=== PATIENT | male | born 1990 | race Caucasian/White ===

== ENCOUNTER 2022-06-23 20:16 | Emergency (ER) | payer OTHER, SELFPAY ==
[2022-06-23 20:18] VITALS: BP 129/80; PULSE 85; RESP 16; TEMP 36.7; O2SAT 97; BMI 25.8
[2022-06-23 21:30] VITALS: BP 108/65; PULSE 85; O2SAT 96
[2022-06-23 21:34] LABS: Basophils # 0.2 K/mm3 (0-0.2); Basophils % 1.4 % (0.1-2.0); Eosinophils # 0.4 K/mm3 (0.0-0.4); Eosinophils % 2.5 % (0.1-12.0); Hematocrit 44.2 % (42.0-52.0); Hemoglobin 15.1 g/dL (14.1-18.0); Lymphocytes % 19.8 % (10-50); Mean Corpuscular HGB Conc 34.2 g/dL (31.8-35.4); Mean Corpuscular Hemoglobin 31.9 pg (27.0-31.2); Mean Corpuscular Volume 93.3 fl (80-94); Mean Platelet Volume 7.1 fl (7.4-10.4); Monocytes # 0.8 K/mm3 (0.1-1.0); Monocytes % 5.4 % (1.7-9.3); Neutrophils # 10.5 K/mm3 (1.8-7.8); Neutrophils % 70.9 % (37.0-80.0); Platelet Count 473 K/mm3 (142-424); Red Blood Count 4.74 M/mm3 (4.60-6.20); Red Cell Distribution Width 14.8 % (11.5-17.5); White Blood Count 14.9 K/mm3 (4.8-10.8)
[2022-06-23 21:42] LABS: Alanine Aminotransferase 30 U/L (12-78); Albumin Level 4.9 g/dl (3.5-5.0); Albumin/Globulin Ratio 1.5 (1.1-1.8); Alkaline Phosphatase 59 U/L (38-126); Aspartate Amino Transferase 33 U/L (17-59); Bilirubin,Total 0.4 mg/dl (0.2-1.3); Blood Urea Nitrogen 17 mg/dl (9-20); Calcium 9.5 mg/dl (8.4-10.2); Carbon Dioxide 30 mmol/L (22.0-30.0); Chloride 104 mmol/L (98-107); Creatinine Clearance Estimated 134 mL/min (50-200); Estimated Glomerular Filt Rate 97 ml/min (>60); GFR (African American) 117 ML/MIN (>60); Globulin 3.2 g/dL (1.3-3.2); Glucose 93 mg/dl (74-100); Sodium 144 mmol/L (136-145); Total Protein,Serum 8.1 g/dl (6.3-8.2)
[2022-06-23 21:47] LABS: C-Reactive Protein 6.7 mg/L (0-4)
[2022-06-23 22:00] VITALS: BP 108/66; PULSE 73; O2SAT 98
[2022-06-23 22:00] LABS: Procalcitonin 0.101 ng/mL (0.0-2.0)
[2022-06-23 22:24] LABS: Erythrocyte Sedimentation Rate 14 mm/hr (0-15)
[2022-06-23 22:30] VITALS: BP 113/66; PULSE 80; O2SAT 98
--- NOTE | 2022-06-23 22:57 | PC.NURSE ---
Dr. Najera at [facility] speaking with pt
--- NOTE | 2022-06-23 23:02 | HMH.EDUPEXT ---
Discharge Plan Disposition Patient Disposition: Home, Self-Care Prescriptions Prescriptions: New sulfamethoxazole-trimethoprim [Bactrim DS] 800-160 mg Tablet 1 tab PO Q12H Qty: 14 0RF cephalexin [cephalexin] 500 mg capsule 500 mg PO TID Qty: 30 0RF No Action omeprazole 40 mg capsule,delayed release(DR/EC) 40 mg PO DAILY Qty: 30 2RF methadone 40 mg tablet,soluble 32 mg PO DAILY escitalopram oxalate [Lexapro] 10 mg tablet 10 mg PO DAILY Qty: 30 2RF hydroxyzine pamoate [Vistaril] 25 mg capsule 25 mg PO TID Qty: 60 0RF Referrals Follow up/Referrals: Mckinley Kramer APRN [Primary Care Provider] - See instructions Clinical Impressions Clinical Impression: Cellulitis and abscess of hand, Acute lymphadenitis Instructions Patient Instructions: Cellulitis Discharge ED Provider: Sander Najera Upper Extremity HPI General Chief Complaint: Extremity Injury, Upper Stated Complaint: red streak from hand injury Time Seen by Provider: 06/23/22 23:02 Mode of Arrival: Ambulatory Source of Information: Patient and Medical Record Limitations: No Limitations Description of Symptoms (Recalled from ER Triage Doc. by RN): pt states bust his lt knuckle last week and then hit it again yesterday and now has a red streak running up his arm History of Present Illness HPI narrative: injured lt hand last week and now has steaking up upper ext MD complaint: injury to: left and hand Onset (ago): day(s) Other Extremity Injury: Left: hand Other injuries: none Handedness: right Place: home Severity: moderate Context: direct blow and other (abrasion) Related Data Home Medications Medication Instructions Recorded Confirmed methadone 40 mg soluble tablet 32 mg PO DAILY 10/06/20 10/06/20 Previous Rx's Medication Instructions Recorded escitalopram oxalate 10 mg tablet 10 mg PO DAILY #30 tabs 10/06/20 (Lexapro) hydroxyzine pamoate 25 mg capsule 25 mg PO TID itching #60 caps 10/06/20 (Vistaril) omeprazole 40 mg capsule,delayed 40 mg PO DAILY #30 caps 10/12/20 release cephalexin 500 mg capsule 500 mg PO TID #30 caps 06/23/22 sulfamethoxazole 800 1 tab PO Q12H #14 tabs 06/23/22 mg-trimethoprim 160 mg tablet (Bactrim DS) Allergies Allergy/AdvReac Type Severity Reaction Status Date / Time No Known Allergies Allergy Verified 10/12/20 11:25 [facility] Disclaimer: The information contained in this section may have been updated after the patient was seen, as this information can be updated by other users. Social History Smoking Status: Current every day smoker tobacco type: cigarettes packs per day: 2 alcohol intake: never substance use type: former substance user, methamphetamine and prescription drug current occupational status: employed Travel in the last 8 weeks: Inside the [place] household members: family housing: house ROS Obtained: Yes All systems reviewed & no additional complaints except as documented Physical Exam General General appearance: alert Head Head exam: normocephalic Eye Eye exam: Present PERRL and EOMI ENT ENT exam: Present mucous membranes moist Neck Neck exam: Present trachea midline Respiratory Respiratory exam: Absent respiratory distress Cardiovascular Cardiovascular exam: Present regular rate Abdominal Exam Abdominal exam: Present soft Expanded Upper Extremity Exam Left: Hand exam: Present full ROM, tenderness, swelling and erythema Neuromotor exam: Normal wrist extension Vascular exam: Normal radial pulse Neurological Exam Neurological exam: Present alert, oriented X3 and CN II-XII intact Psychiatric Psychiatric exam: Present normal affect Skin Skin exam: Present other (streaking lt upper ext ) Medical Decision Making Medical Records Medical records reviewed: Yes I reviewed the patient's medical records. Chago Inquiry Pt receiving controlled substance: No Vital Signs: 06/23/22 20:18
[2022-06-23 23:36] VITALS: BP 112/74; PULSE 77; RESP 16; TEMP 36.7; O2SAT 96
== END 2022-06-23 23:38 | disposition home or self-care (01) ==
PROVIDERS: Emergency Provider Emergency Medicine; PCP Nurse Practitioner Family
DX: L03.114 Cellulitis of left upper limb (principal); L02.512 Cutaneous abscess of left hand; L04.9 Acute lymphadenitis, unspecified; F17.210 Nicotine dependence, cigarettes, uncomplicated; Z23 Encounter for immunization
CPT/HCPCS: 80053; 83605; 84145; 85025; 85651; 86140; 87040; 90471; 90714; 96361; 96374; 96375; 99285; J0696

== ENCOUNTER → 2023-01-28 23:44 | Outpatient (CLI) | payer OTHER, SELFPAY ==
[2023-01-28 19:29] LABS: Adenovirus,PCR Not Detected (NotDetected); Bordetella Pertussis Not Detected (NotDetected); Chlamydophila Pneumoniae, PCR Not Detected (NotDetected); Coronavirus 19, PCR Not Detected (NotDetected); Coronavirus 229E Not Detected (NotDetected); Coronavirus NL63 Not Detected (NotDetected); Coronavirus OC43 Not Detected (NotDetected); Coronovirus HKU1,PCR Not Detected (NotDetected); Human Metapneumovirus Not Detected (NotDetected); Influenza A, PCR Not Detected (NotDetected); Influenza AH1, 2009 Not Detected (NotDetected); Influenza AH1, PCR Not Detected (NotDetected); Influenza AH3,PCR Not Detected (NotDetected); Influenza B, PCR Not Detected (NotDetected); Mycoplasma Pneumoniae, PCR Not Detected (NotDetected); Parainfluenza 2, PCR Not Detected (NotDetected); Parainfluenza 3, PCR Not Detected (NotDetected); Parainfluenza 4, PCR Not Detected (NotDetected); Respiratory Syncytial Virus Not Detected (NotDetected)
[2023-01-28 21:35] LABS: Parainfluenza 1, PCR Detected (NotDetected); Rhinovirus/Enterovirus Detected (NotDetected)
== END ==
PROVIDERS: PCP Student in an Organized Health Care Education/Training Program; Visit Provider Student in an Organized Health Care Education/Training Program
DX: R53.83 Other fatigue (principal); R51.9 Headache, unspecified; R09.89 Other specified symptoms and signs involving the circulatory and respiratory systems; J02.9 Acute pharyngitis, unspecified; R05.9 Cough, unspecified; J12.2 Parainfluenza virus pneumonia; B34.1 Enterovirus infection, unspecified
CPT/HCPCS: 87581; 87632; 87798

== ENCOUNTER 2023-04-05 11:14 | Emergency (ER) | payer OTHER, SELFPAY ==
[2023-04-05 11:15] VITALS: BP 135/101; PULSE 125; RESP 20; TEMP 37.1; O2SAT 96; BMI 22.9
--- NOTE | 2023-04-05 11:22 | XR_ITS ---
FINAL REPORT CLINICAL HISTORY: crush injury pain mainly in 4th and 5th digit COMPARISON: None FINDINGS: RIGHT HAND: 3 views of the right hand were obtained. There is no acute fracture or dislocation. Visualized joint spaces are normally aligned. Soft tissues are unremarkable. IMPRESSION: No acute bony abnormality. Reviewed, Interpreted and Dictated by Donny Hernandez III, MD Transcribed by Marybel Lozano Authenticated and . [facility]
--- NOTE | 2023-04-05 11:30 | PC.NURSE ---
dr. de león at BS
--- NOTE | 2023-04-05 11:31 | PC.NURSE ---
rad at BS for portable xray
--- NOTE | 2023-04-05 11:34 | HMH.EDGENADL ---
Discharge Plan Disposition Patient Disposition: Xfer Short-Term Hosp Condition: Fair Prescriptions Prescriptions: No Action omeprazole 40 mg capsule,delayed release(DR/EC) 40 mg PO DAILY Qty: 30 2RF prednisone 20 mg tablet 20 mg PO BID 5 Days Qty: 10 0RF methadone 40 mg tablet,soluble 32 mg PO DAILY escitalopram oxalate [Lexapro] 10 mg tablet 10 mg PO DAILY Qty: 30 2RF hydroxyzine pamoate [Vistaril] 25 mg capsule 25 mg PO TID Qty: 60 0RF [id number]-fwwzdajbc-[id number] [Bromfed DM] 2-30-10 mg/5 mL syrup 7.5 ml PO Q4-6H PRN (Reason: cold symptoms) Qty: 118 0RF Referrals Follow up/Referrals: Sander Najera MD [Primary Care Provider] - See instructions Activity Restrictions/Add. Instructions Additional Instructions/Restrictions: You were evaluated in the ER for crush injury of the right hand. Though you do not have a fracture, you do have a laceration and numbness. The specialist at want to see you to evaluate the numbness and make sure you do not develop consequences that could lead to you losing your pinky or part of your hand. Go directly to [facility] ER you decided to go by personal vehicle to which is all right, but you must go directly there. Do not make stops along the way. Do not eat or drink prior to arriving there. Give them the packet of information you have been provided. Tell them you are a transfer to see the hand surgeons. They will provide additional recommendations after seeing you. Clinical Impressions Clinical Impression: Crushing injury of right hand Qualifiers: Encounter type: initial encounter Qualified Code(s): S67.21XA - Crushing injury of right hand, initial encounter Stand Alone Forms Stand Alone Forms: Transfer Record - ED Discharge ED Provider: Juan José Jacobsen General Adult HPI General Chief complaint: Extremity Injury, Upper Stated complaint: AO11/3@home, pain in Rt hand Time Seen by Provider: 04/05/23 11:25 Mode of Arrival: Ambulatory Source of Information: Patient Limitations: No Limitations Description of Symptoms (Recalled from ER Triage Doc. by RN): Pt c/o pain to R hand. Pt reports hand was crushed between a truck on a concrete block. Laceration on R 5th finger. History of Present Illness HPI narrative: Patient is a 32-year-old male who presents to the emergency department with acute right hand pain after his right hand was crushed by a truck between it and a cement block. Patient states he was working on a truck and it was jacked up with concrete blocks under it, the alejandra gave way and it fell crushing his right hand. They had to lift the vehicle with a bobcat in order to free his hand. They state they were able to see bone prior to it starting bleeding. Patient has numbness of the right pinky. He has small laceration in the webbing between the pinky and ring finger on the right. He states he put diesel fuel on it to prevent infection. He is in severe pain. Patient goes to methadone clinic but states his pain is unbearable and is shaking. He is afraid he broke the hand. He states doc, I cannot lose this hand this is how I make money for my family . He is right-hand dominant. Related Data Home Medications Medication Instructions Recorded Confirmed methadone 40 mg soluble tablet 32 mg PO DAILY 10/06/20 01/28/23 Previous Rx's Medication Instructions Recorded escitalopram oxalate 10 mg tablet 10 mg PO DAILY #30 tabs 10/06/20 (Lexapro) hydroxyzine pamoate 25 mg capsule 25 mg PO TID itching #60 caps 10/06/20 (Vistaril) omeprazole 40 mg capsule,delayed 40 mg PO DAILY #30 caps 10/12/20 release prednisone 20 mg tablet 20 mg PO BID 5 days #10 tabs 01/28/23 qudiwhhoidanwry-juqrhdbvwuvlaji-AN 7.5 ml PO Q4-6H PRN cold symptoms 01/29/23 2 mg-30 mg-10 mg/5 mL oral syrup #118 mL (Bromfed DM) Allergies Allergy/AdvReac Type Severity Reaction Status Date / Time No Known Allergies Allergy Verified 01/28/23 09:54 [facility]
--- NOTE | 2023-04-05 12:56 | PC.NURSE ---
pt reports pain starting again in R hand updated pt waiting on official xray readings checked with ER MD on POC-states waiting on xray results- gave verbal order for oxycodone 5 mg po one time dose
--- NOTE | 2023-04-05 13:23 | PC.NURSE ---
Spoke with jaylin at [facility] advised they would be giving us a call back when the provider is available.
--- NOTE | 2023-04-05 13:37 | PC.NURSE ---
DOMINGO KO speaking with Dr. Miller at
--- NOTE | 2023-04-05 13:41 | PC.NURSE ---
pt accepted to ER per Dr. Brandi de león at bs discussing POC with pt
[2023-04-05 13:59] VITALS: BP 110/81; PULSE 77; RESP 16; O2SAT 95
[2023-04-05 14:00] VITALS: BP 119/75; PULSE 81; RESP 16; O2SAT 98
[2023-04-05 14:10] VITALS: BP 119/75; PULSE 81; RESP 16; TEMP 37.1; O2SAT 98
== END 2023-04-05 14:10 | disposition short-term general hospital (02) ==
PROVIDERS: Emergency Provider Emergency Medicine; PCP Emergency Medicine
DX: S67.21XA Crushing injury of right hand, initial encounter (principal); F17.210 Nicotine dependence, cigarettes, uncomplicated; W23.0XXA Caught, crushed, jammed, or pinched between moving objects, initial encounter
CPT/HCPCS: 73130; 96365; 96375; 99285; J2405

== ENCOUNTER 2023-08-27 19:21 | Outpatient (CLI) | payer OTHER, SELFPAY | END 2023-08-27 23:59 | LOC: LAB.DROPOF 19:21 | PROVIDERS: PCP Student in an Organized Health Care Education/Training Program; Visit Provider Student in an Organized Health Care Education/Training Program | DX: J02.9 Acute pharyngitis, unspecified (principal); F17.210 Nicotine dependence, cigarettes, uncomplicated | CPT/HCPCS: 87070 ==

== ENCOUNTER 2024-05-14 00:12 | Emergency (ER) | payer OTHER, SELFPAY ==
[2024-05-14 00:15] VITALS: BP 139/94; PULSE 84; RESP 18; TEMP 36.5; O2SAT 100; BMI 23.7
[2024-05-14 00:55] LABS: Basophils # 0.1 K/mm3 (0-0.2); Basophils % 0.8 % (0.1-2.0); Eosinophils # 1.4 K/mm3 (0.0-0.4); Eosinophils % 12.4 % (0.1-12.0); Hematocrit 40.9 % (42.0-52.0); Hemoglobin 13.5 g/dL (14.1-18.0); Lymphocytes # 2.5 K/mm3 (0.7-4.5); Lymphocytes % 23.2 % (10-50); Mean Corpuscular Hemoglobin 30.3 pg (27.0-31.2); Mean Corpuscular Volume 91.9 fl (80-94); Mean Platelet Volume 6.9 fl (7.4-10.4); Monocytes # 0.8 K/mm3 (0.1-1.0); Monocytes % 7.1 % (1.7-9.3); Neutrophils # 6.2 K/mm3 (1.8-7.8); Neutrophils % 56.6 % (37.0-80.0); Platelet Count 434 K/mm3 (142-424); Red Blood Count 4.45 M/mm3 (4.60-6.20); White Blood Count 10.9 K/mm3 (4.8-10.8)
[2024-05-14 01:00] LABS: Alanine Aminotransferase 32 U/L (12-78); Albumin Level 4.8 g/dl (3.5-5.0); Alkaline Phosphatase 48 U/L (38-126); Anion Gap 11.2 mEq/L (5-15); Aspartate Amino Transferase 38 U/L (17-59); Bilirubin,Total 0.3 mg/dl (0.2-1.3); Blood Urea Nitrogen 20 mg/dl (9-20); Calcium 9.5 mg/dl (8.4-10.2); Carbon Dioxide 29 mmol/L (22.0-30.0); Chloride 105 mmol/L (98-107); Creatinine Clearance Estimated 102 mL/min (50-200); Estimated Glomerular Filt Rate 76 ml/min (>60); GFR (African American) 92 ML/MIN (>60); Globulin 2.4 g/dL (1.3-3.2); Glucose 140 mg/dl (74-100); Potassium 4.2 mmoL/L (3.5-5.1); Sodium 141 mmol/L (136-145); Total Protein,Serum 7.2 g/dl (6.3-8.2)
--- NOTE | 2024-05-14 01:02 | ED_ITS ---
Discharge Plan Disposition Patient Disposition: Home, Self-Care Condition: Good Prescriptions Prescriptions: New prednisone 50 mg tablet 50 mg PO DAILY 28 Days Qty: 21 0RF Rx Instructions: Take 1 tab daily for 14 days. Then take half tab daily for 14 days. hydroxyzine HCl 25 mg tablet 25 mg PO Q6H PRN (Reason: itching) Qty: 60 0RF No Action omeprazole 40 mg capsule,delayed release(DR/EC) 40 mg PO DAILY Qty: 30 2RF methylprednisolone 4 mg tablets,dose pack See Rx Instructions PO PER PKG DIR Qty: 21 0RF Rx Instructions: PO PER PKG DIR loratadine [Allergy Relief (loratadine)] 10 mg tablet 10 mg PO DAILY Qty: 30 2RF methadone 40 mg tablet,soluble 32 mg PO DAILY escitalopram oxalate [Lexapro] 10 mg tablet 10 mg PO DAILY Qty: 30 2RF hydroxyzine pamoate [Vistaril] 25 mg capsule 25 mg PO TID Qty: 60 0RF Referrals Follow up/Referrals: Lakeisha Cross MD [Referring] - See instructions Sanna Tomas PA [Primary Care Provider] - See instructions Activity Restrictions/Add. Instructions Additional Instructions/Restrictions: Please establish care with PCP as soon as possible. Please call dermatology to be seen as soon as possible. You need to have your blood work rechecked. Please take steroids as prescribed. Please take hydroxyzine as needed for itching. Clinical Impressions Clinical Impression: Eosinophilia, Rash and nonspecific skin eruption Instructions Patient Instructions: DI for Skin Abscess Print Language Print Language: Macedonian Discharge ED Provider: Hi Schwartz Adult HPI General Chief complaint: Skin/Abscess/Foreign Body Stated complaint: painful rash top half of body, nausea, weakness Time Seen by Provider: 05/14/24 00:15 Mode of Arrival: Ambulatory Source of Information: Patient Limitations: No Limitations Description of Symptoms (Recalled from ER Triage Doc. by RN): Patient presents to ED with a rash that has been going on x3 weeks. Rash is present on chest, bilateral arms, back and bilateral legs. Patient reports the rash itches. Patient states he has had some nasuea. History of Present Illness HPI narrative: 33-year-old male with history of chronic sinusitis presents for diffuse pruritic rash. He reports that he first noticed it a few days ago after working in a house to replace fiberglass insulation. He reports this started on his arms but is now gone to his whole body. It is extremely itchy and he has been scratching his arms significantly. He reports that that his skin is a different color than normal and spots. He reports that he intermittently gets bloody noses but that is normal for him. He denies any shortness of breath. He reports he has had approximately 15 pound weight loss over the last few months that was unintentional, but he reports he has been really stressed and has not been eating as much is normal. He denies any medications except for methadone, denies any drug use. Patient has no known allergies. No history of eczema. Related Data Home Medications ?Medication ?Instructions ?Recorded ?Confirmed methadone 40 mg soluble tablet 32 mg PO DAILY 10/06/20 08/27/23 Previous Rx's ?Medication ?Instructions ?Recorded escitalopram oxalate 10 mg tablet 10 mg PO DAILY #30 tabs 10/06/20 (Lexapro) hydroxyzine pamoate 25 mg capsule 25 mg PO TID itching #60 caps 10/06/20 (Vistaril) omeprazole 40 mg capsule,delayed 40 mg PO DAILY #30 caps 10/12/20 release loratadine 10 mg tablet (Allergy 10 mg PO DAILY #30 tabs 08/27/23 Relief (loratadine)) methylprednisolone 4 mg tablets in See Rx Instructions PO PER PKG DIR 08/27/23 a dose pack #21 tabs hydroxyzine HCl 25 mg tablet 25 mg PO Q6H PRN itching #60 tabs 05/14/24 prednisone 50 mg tablet 50 mg PO DAILY 28 days #21 tabs 05/14/24 Allergies Allergy/AdvReac Type Severity Reaction Status Date / Time No Known Allergies Allergy Verified 08/27/23 14:30 [facility] Disclaimer: The information contained in this section may have been updated after the patient was seen, as this information can be updated by other users. Medical History (Updated 05/14/24 @ 02:19 by Hi Schwartz MD) Acute lymphadenitis Anxiety and depression Tobacco use disorder Surgical History (Updated 08/27/23 @ 21:11 by CANDICE Nicholas) H/O nasal polypectomy No significant past surgical history Family History Other No significant family history Social History Smoking Status: Current every day smoker tobacco type: cigarettes packs per day: 2 alcohol intake: never substance use type: former substance user, methamphetamine and prescription drug current occupational status: employed Travel in the last 8 weeks: Inside the [place] household members: family housing: house Other Medical History Have you received the Pneumonia Vaccine: No ROS Obtained: Yes All systems reviewed & no additional complaints except as documented Physical Exam General General appearance: alert and in no apparent distress Head Head exam: atraumatic and normocephalic Eye Eye exam: Present normal appearance, PERRL and EOMI ENT ENT exam: Present normal oropharynx and normal external ear exam Neck Neck exam: Present normal inspection and full ROM Chest Chest inspection: Present normal inspection and symmetric chest wall rise; Absent tenderness Respiratory Respiratory exam: Present normal lung sounds bilaterally; Absent respiratory distress Cardiovascular Cardiovascular exam: Present regular rate and normal rhythm Abdominal Exam Abdominal exam: Present soft; Absent distention, tenderness or guarding Extremities Exam Extremities exam: Present normal inspection; Absent edema or joint swelling Back Exam Back exam: Present normal inspection; Absent tenderness Neurological Exam Neurological exam: Present alert and oriented X3; Absent motor sensory deficit Psychiatric Psychiatric exam: Present normal affect and normal mood Skin Skin exam: Present warm, dry, rash (Diffuse rash over the arms legs chest abdomen and back. Blanching, erythematous, discrete papular lesions, intensely pruritic. Over the arms there are extensive excoriations, no secondary cellulitis at this point. Scattered areas of lichenification) and erythema Lymphatic Lymphatic Findings: no adenopathy Medical Decision Making Medical Records Medical records reviewed: Yes I reviewed the patient's medical records. Screening: Per USPSTF and CDC recommendations, given the prevalence of disease in our region, it is our hospital?s policy to screen for HIV and viral Hepatitis for all patients aged 18 and over and those with ongoing risk factors. Chago Inquiry Pt receiving controlled substance: No Chago was queried for this patient: No Vital Signs: 05/14/24 00:15 05/14/24 02:24 Temperature 97.7 F 97.7 F Temperature Source Oral Oral Pulse Rate 84 Pulse Rate [Right Brachial] 84 Respiratory Rate 18 18 Blood Pressure 129/92 H Blood Pressure [Right Arm] 139/94 H Blood Pressure Mean [Right Arm] 109 Blood Pressure Source Automatic Cuff Blood Pressure Source [Right Arm] Automatic Cuff Blood Pressure Position Supine Blood Pressure Position [Right Arm] Supine 02 Sat by Pulse Oximetry 100 Oxygen Delivery Method Room Air Room Air Lab Data Lab results reviewed: Yes I reviewed the patient's lab results. Lab Results 05/14/24 00:45: WBC 10.9 H, RBC 4.45 L, Hgb 13.5 L, Hct 40.9 L, MCV 91.9, MCH 30.3, MCHC 33.0, RDW 14.0, Plt Count 434 H, MPV 6.9 L, Neut % (Auto) 56.6, Lymph % (Auto) 23.2, [place] % (Auto) 7.1, Eos % (Auto) 12.4 H, Baso % (Auto) 0.8, Neut # (Auto) 6.2, Lymph # (Auto) 2.5, [place] # (Auto) 0.8, Eos # (Auto) 1.4 H, Baso # (Auto) 0.1, Sodium 141, Potassium 4.2, Chloride 105, Carbon Dioxide 29, Anion Gap 11.2, BUN 20, Creatinine 1.10, Estimated Creat Clear 102, Estimated GFR 76, Est GFR ( Amer) 92, Glucose 140 H, Calcium 9.5, Total Bilirubin 0.3, AST 38, ALT 32, Alkaline Phosphatase 48, Troponin I < 0.01, Total Protein 7.2, Albumin 4.8, Globulin 2.4, Albumin/Globulin Ratio 2.0 H, Vitamin B12 552, HIV 1&2 Antibody Rapid Nonreactive 05/14/24 00:45 05/14/24 00:45 Orders (Tests/Meds): ED MEDICATIONS Discontinued Medications Generic Name Dose Route Start Last Admin Trade Name Freq PRN Reason Stop Dose Admin Hydroxyzine Pamoate 25 mg 05/14/24 02:17 05/14/24 02:22 Hydroxyzine Pamoate 25mg Capsule PO 05/14/24 02:18 25 mg ONCE ONE Administration Prednisone 60 mg 05/14/24 02:17 05/14/24 02:22 Prednisone 20mg Tab PO 05/14/24 02:18 60 mg ONCE ONE Administration ORDERS Category Date Time Status CXR --portable [XR chest portable] Stat Exams 05/14/24 01:19 Taken Antineutrophil Cytoplasmic Ab Stat Lab 05/14/24 02:16 Received CBC w/Auto Diff [Complete Blood Count Auto Diff] Stat Lab 05/14/24 00:45 Completed CMP [Comprehensive Metabolic Panel] Stat Lab 05/14/24 00:45 Completed HIV (1&2) Antibody Rapid Stat Lab 05/14/24 00:45 Completed Hep C Ab with Reflex to RNA Stat Lab 05/14/24 00:45 Received Peripheral Smear Review Stat Lab 05/14/24 00:45 Received Troponin I Stat Lab 05/14/24 00:45 Completed Tryptase Stat Lab 05/14/24 01:59 Received Vitamin B12 Stat Lab 05/14/24 00:45 Completed Medical Decision Narrative: 33-year-old male without significant past medical history presents for diffuse pruritic rash for the last few days.. History was obtained via interactive discussion with patient. On arrival, patient is [afebrile, hemodynamically stable, satting appropriately, alert, oriented x4, GCS 15], moving all extremities spontaneously. Full physical exam performed and significant for extensive skin rash as documented above. No lymphadenopathy on exam. Blood work obtained and significant for eosinophilia with absolute eosinophil count 1.4. Further workup ordered including peripheral smear, ANCA, B12 tryptase troponin chest x-ray HIV hep C Differential includes but is not limited to idiopathic urticaria, atopic dermatitis, allergic reaction, dress syndrome eczema, malignancy, hypereosinophilia syndromes, EGPA, parasitosis Given patient history, exam and workup, patient's presentation most likely represents hypereosinophilia with cutaneous eruption. No history of medication use to suggest dress syndrome. He has history of chronic sinusitis and nosebleeds is suggestive of EGPA. No history of recent travel or parasitosis. Patient has had some skin exposures including fiberglass and diesel fuel, but the distribution and timing of the rash does not make sense with this. He has had some unintentional weight loss, but he has no lymphadenopathy and does not have severely elevated or depressed cell lines on differential. Given the rest of his workup is normal and patient is well-appearing otherwise, I do not think he needs to be transferred for more serious evaluation. However, I encouraged him to follow-up with dermatology and PCP as soon as possible for further assessment. I started him on high-dose steroids with 50 mg prednisone daily for 2 weeks and 25 mg daily thereafter for 2 weeks. This should cover him until he can be seen for follow-up. Procedures Risk/Benefits of Procedure(s) Were Explained: Yes Critical Care Critical Care Time Critical Care Time: No
--- NOTE | 2024-05-14 01:19 | XR_ITS ---
PROCEDURE INFORMATION: Exam: XR Chest Exam date and time: 05/14/2024 1:20 AM Age: 33 years old Clinical indication: Other: Eosinophilia TECHNIQUE: Imaging protocol: Radiologic exam of the chest. Views: 1 view. COMPARISON: No relevant prior studies available. FINDINGS: Lungs: Normal. Pleural spaces: Unremarkable. No pleural effusion. No pneumothorax. Heart/Mediastinum: Normal. Bones/joints: No acute abnormality. IMPRESSION: No acute findings.
[2024-05-14 01:35] LABS: HIV (1&2) Antibody Rapid NONREACTIVE (NONREACTIVE)
[2024-05-14 01:56] LABS: Troponin I < 0.01 ng/ml (0.00-0.034)
[2024-05-14 02:22] LABS: Vitamin B12 552 pg/mL (239-931)
[2024-05-14] MEDS: hydrOXYzine pamoate 25MG CAPSULE 25 MG PO (02:22)
[2024-05-14] MEDS: predniSONE 20MG TAB 60 MG PO (02:22)
[2024-05-14 02:24] VITALS: BP 129/92; PULSE 84; RESP 18; TEMP 36.5; O2SAT 100
[2024-05-15 06:11] LABS: HCV Ab Non Reactive (Non Reactive)
[2024-05-16 01:42] LABS: Peripheral Smear Review Scanned Result
[2024-05-18 17:39] LABS: Cytoplasmic (C-ANCA) <1:20 titer (Neg:<1:20); Perinuclear (P-ANCA) <1:20 titer (Neg:<1:20)
== END 2024-05-14 02:31 | disposition home or self-care (01) ==
PROVIDERS: Emergency Provider Emergency Medicine; PCP Student in an Organized Health Care Education/Training Program
DX: D72.10 Eosinophilia, unspecified (principal); R21 Rash and other nonspecific skin eruption; R11.0 Nausea; R04.0 Epistaxis; R63.4 Abnormal weight loss; Z72.0 Tobacco use; Z51.81 Encounter for therapeutic drug level monitoring
CPT/HCPCS: 71045; 80053; 82607; 83520; 84484; 85025; 86036; 86803; 87389; 99283

== ENCOUNTER 2024-12-19 14:43 | Emergency (ER) | payer OTHER, SELFPAY ==
[2024-12-19 14:49] VITALS: BP 92/57; PULSE 91; O2SAT 98
[2024-12-19 14:50] VITALS: BP 117/81; PULSE 93; RESP 15; TEMP 36.8; O2SAT 98; BMI 24.3
--- NOTE | 2024-12-19 15:05 | ED_ITS ---
Discharge Plan Disposition Patient Disposition: Home, Self-Care Condition: Good Prescriptions Prescriptions: No Action methadone 40 mg tablet,soluble 32 mg PO DAILY clindamycin HCl 300 mg capsule 300 mg PO Q8H 10 Days Qty: 30 0RF hydroxyzine HCl 25 mg tablet 25 mg PO Q6H PRN (Reason: itching) 30 Days Qty: 90 2RF Referrals Follow up/Referrals: Sanna Tomas PA [Primary Care Provider, Family Practice] - See instructions Tae Gordon DO [Staff Physician, Orthopedics] - See instructions Activity Restrictions/Add. Instructions Additional Instructions/Restrictions: Take Tylenol and ibuprofen every 6 hours for the next 2 days for pain and inflammation. You likely have a sprain. If you continue to have severe worsening symptoms, I have sent you with a referral to the orthopedic team and you should follow-up with them. You can wear the brace as needed for comfort and remove when your pain and swelling resolves. You can use ice as needed for comfort. Clinical Impressions Clinical Impression: Hand sprain Print Language Print Language: Tongan Discharge ED Provider: Sanna Mena General Adult HPI General Chief complaint: Extremity Injury, Upper Stated complaint: AO 12/18/24 22:00 R arm Edema and Possible Break Time Seen by Provider: 12/19/24 15:05 Mode of Arrival: Ambulatory Source of Information: Patient Description of Symptoms (Recalled from ER Triage Doc. by RN): patient states lastnight he was working on a tractor wheel when his right hand slipped from the [place] [employer] bar and hit the tractor wheel. his pain is in his right wrist and hand 8/10 pain History of Present Illness HPI narrative: Patient is a 34-year-old male with no significant past medical history who presents to the emergency department with a right upper extremity injury. Patient states that last night he was working on a tractor wheel when his arm slipped and he hit the tractor wheel. Patient reports significant pain at the ulnar aspect of his wrist. Patient denies any numbness or weakness. Patient is not on any blood thinners. Patient did not take any Tylenol or Motrin for his symptoms. Patient states that his pain continued today which is why he came here to the emergency department. Related Data Home Medications ?Medication ?Instructions ?Recorded ?Confirmed methadone 40 mg soluble tablet 32 mg PO DAILY 05/06/21 12/20/24 Previous Rx's ?Medication ?Instructions ?Recorded clindamycin HCl 300 mg capsule 300 mg PO Q8H 10 days # 30 caps 05/22/24 hydroxyzine HCl 25 mg tablet 25 mg PO Q6H PRN itching 1 month 05/22/24 #90 tabs Allergies Allergy/AdvReac Type Severity Reaction Status Date / Time No Known Allergies Allergy Verified 05/22/24 13:09 [facility] Disclaimer: The information contained in this section may have been updated after the patient was seen, as this information can be updated by other users. Medical History Acute lymphadenitis Anxiety and depression Tobacco use disorder Surgical History H/O nasal polypectomy No significant past surgical history Family History Other No significant family history Social History Smoking Status: Current every day smoker tobacco type: cigarettes packs per day: 2 alcohol intake: never substance use type: former substance user, methamphetamine and prescription drug current occupational status: employed Travel in the last 8 weeks?: Inside the [place] household members: family housing: house Have you lived/traveled outside US in past 30 days?: No Contact w/someone who lives/traveled outside US past 30 days?: No Exposure to someone with infectious disease in past 14 days?: No Do you have a fever (greater than 100.4 F or 38 C)?: No Have you tested positive for COVID-19?: No Exposed to someone with COVID-19 in past 14 days?: No Do you have a sore throat?: No Do you have a cough?: No Do you have any weakness?: No Do you have any diarrhea?: No Are you experiencing any unusual bleeding?: No Do you have any muscle aches/pain?: No Do you have any abdominal pain?: No Are you experiencing loss of taste or smell?: No Other Medical History Have you received the Pneumonia Vaccine: No ROS Obtained: Yes All systems reviewed & no additional complaints except as documented and Yes Systems reviewed as appropriate & no additional complaints except as documented Physical Exam General General appearance: alert and in no apparent distress Head Head exam: atraumatic, normocephalic and normal inspection Eye Eye exam: Present normal appearance, PERRL and EOMI; Absent scleral icterus ENT ENT exam: Present normal exam and normal external ear exam Neck Neck exam: Present normal inspection and full ROM Chest Chest inspection: Present normal inspection and symmetric chest wall rise Respiratory Respiratory exam: Present normal lung sounds bilaterally; Absent respiratory distress or wheezes Cardiovascular Cardiovascular exam: Present regular rate, normal rhythm and normal heart sounds Abdominal Exam Abdominal exam: Present soft and distention; Absent tenderness, guarding or rebound Extremities Exam Extremities exam: Present normal inspection, full ROM and other (Right upper extremity with tenderness at the ulnar aspect of the wrist, swelling on the dorsal aspect of the hand, no snuff box tenderness, no obvious deformity ) Back Exam Back exam: Present normal inspection and full ROM Neurological Exam Neurological exam: Present alert, oriented X3 and other Psychiatric Psychiatric exam: Present normal affect and normal mood Skin Skin exam: Present warm and dry Medical Decision Making Medical Records Screening: Per USPSTF and CDC recommendations, given the prevalence of disease in our region, it is our hospital?s policy to screen for HIV and viral Hepatitis for all patients aged 18 and over and those with ongoing risk factors. Chago Inquiry Pt receiving controlled substance: No Vital Signs: 12/19/24 14:49 12/19/24 14:50 12/19/24 15:30 Temperature 98.2 F Temperature Source Oral Pulse Rate 91 H 74 Pulse Rate [Right Radial] 93 H Respiratory Rate 15 Blood Pressure 92/57 L 120/66 Blood Pressure [Right Arm] 117/81 Blood Pressure Mean 75 Blood Pressure Mean [Right Arm] 93 Blood Pressure Source Blood Pressure Source [Right Arm] Automatic Cuff Blood Pressure Position Blood Pressure Position [Right Arm] Supine 02 Sat by Pulse Oximetry 98 98 97 Oxygen Delivery Method Room Air 12/19/24 16:00 12/19/24 16:30 12/19/24 17:35 Temperature 98.1 F Temperature Source Oral Pulse Rate 65 61 74 Pulse Rate [Right Radial] Respiratory Rate 15 Blood Pressure 101/61 L 102/69 L 120/84 Blood Pressure [Right Arm] Blood Pressure Mean 67 74 Blood Pressure Mean [Right Arm] Blood Pressure Source Automatic Cuff Blood Pressure Source [Right Arm] Blood Pressure Position Supine Blood Pressure Position [Right Arm] 02 Sat by Pulse Oximetry 99 Oxygen Delivery Method Room Air Lab Data Lab results reviewed: Yes I reviewed the patient's lab results. Orders (Tests/Meds): ED MEDICATIONS Discontinued Medications Generic Name Dose Route Start Last Admin Trade Name Lisa PRN Reason Stop Dose Admin Acetaminophen 1,000 mg 12/19/24 16:25 12/19/24 16:32 Acetaminophen 500mg Tab PO 12/19/24 16:26 1,000 mg ONCE ONE Administration Ibuprofen 800 mg 12/19/24 16:25 12/19/24 16:32 Ibuprofen 800 Mg Tablet PO 12/19/24 16:26 800 mg ONCE ONE Administration Morphine Sulfate 4 mg 12/19/24 15:27 12/19/24 15:52 Morphine 4mg/Ml Syringe IV 12/19/24 15:28 4 mg ONCE ONE Administration Ondansetron HCl 4 mg 12/19/24 15:27 12/19/24 15:52 Ondansetron 4mg/2ml Vial IV 12/19/24 15:28 4 mg ONCE ONE Administration ORDERS Category Date Time Status Forearm XR right 2 views [XR forearm RT 2V] Stat Exams 12/19/24 15:27 Completed Hand XR right minimum 3 views [XR hand RT min 3V] Stat Exams 12/19/24 15:27 Completed Wrist XR right minimum 3 views [XR wrist RT min 3V] Exams 12/19/24 15:27 Completed Stat Medical Decision Narrative: Patient is a 34-year-old male with no significant past medical history who presented to the emergency department with right upper extremity pain. Patient states he hit it on a tractor wheel last night. On arrival, patient was hemodynamically stable with unremarkable vital signs. On exam, patient did have some swelling along the ulnar dorsal aspect of the hand. Patient had some tenderness along the ulnar aspect of the wrist, no snuffbox tenderness no tenderness at the base of the fifth metacarpal. Patient was neurovascularly intact with appropriate pulses. Differential includes but not limited to: Fracture, dislocation, sprain, strain, amongst others. Patient was given Tylenol and Motrin as well as morphine for pain control in the emergency department. X-rays were reviewed and interpreted by myself. No acute fracture was seen. At this time, patient was placed into a removable splint and patient was sent with orthopedic follow-up. Patient was advised to take Tylenol and ibuprofen at home for symptom control and return precautions were discussed. Patient was discharged home in stable condition. Critical Care Critical Care Time Critical Care Time: No
--- OUTSIDE RECORDS SUMMARY | 2024-12-19 15:11 | XMS_ITS | Clinical Summary ---
Author Organization Healthcare Address [address] [place] [address] Care Team Providers Care Sales Trainer Name Role Phone Unavailable Primary Care Provider Unavailabl e Social History Tobacco Use Types Packs/Day Years Used Date Smoking Tobacco: Never Assessed Sex and Gender Information Value Date Recorded Sex Assigned at Not on file Legal Sex Male 8:24 PM EDT Gender Identity Not on file Sexual Orientation Not on file Last Filed Vital Signs Vital Sign Reading Time Taken Comments Blood Pressure 135/101 04/05/2023 1:39 PM EDT Pulse 125 04/05/2023 1:39 PM EDT Temperature 37.1 C (98.7 F) 04/05/2023 1:39 PM EDT Respiratory Rate 20 04/05/2023 1:39 PM EDT Oxygen Saturation 96% 04/05/2023 1:39 PM EDT RA Inhaled Oxygen Concentration - - Weight - - Height - - Body Mass Index - - Plan of Treatment Not on file [place] [id number] [employer] [facility] MEDICAID
--- NOTE | 2024-12-19 15:27 | XR_ITS ---
PROCEDURE INFORMATION: Exam: XR Right Hand Exam date and time: 12/19/2024 3:37 PM Age: 34 years old Clinical indication: Other: Tenderness, concern for fracture TECHNIQUE: Imaging protocol: Radiologic exam of the right hand. Views: 3 or more views. COMPARISON: CR XR HAND RT MIN 3V 04/05/2023 11:48 AM FINDINGS: Bones/joints: Normal. Soft tissues: Normal. IMPRESSION: No acute findings.
--- NOTE | 2024-12-19 15:27 | XR_ITS ---
PROCEDURE INFORMATION: Exam: XR Right Forearm Exam date and time: 12/19/2024 3:37 PM Age: 34 years old Clinical indication: Other: Tenderness, concern for fracture TECHNIQUE: Imaging protocol: Radiologic exam of the right forearm. Views: 2 views. COMPARISON: CR XR FOREARM RT 2V 12/19/2024 3:37 PM FINDINGS: Bones/joints: Normal. Soft tissues: Normal. IMPRESSION: No acute findings.
--- NOTE | 2024-12-19 15:27 | XR_ITS ---
PROCEDURE INFORMATION: Exam: XR Right Wrist Exam date and time: 12/19/2024 3:37 PM Age: 34 years old Clinical indication: Other: Tenderness, concern for fracture TECHNIQUE: Imaging protocol: Radiologic exam of the right wrist. Views: 3 or more views. COMPARISON: CR XR HAND RT MIN 3V 04/05/2023 11:48 AM FINDINGS: Bones/joints: Normal. Soft tissues: Normal. IMPRESSION: No acute findings.
[2024-12-19 15:30] VITALS: BP 120/66; PULSE 74; O2SAT 97
[2024-12-19] MEDS: ONDANSETRON 4MG/2ML VIAL 4 MG IV (15:52)
[2024-12-19] MEDS: MORPHINE 4MG/ML SYRINGE 4 MG IV (15:52)
[2024-12-19 16:00] VITALS: BP 101/61; PULSE 65; O2SAT 99
[2024-12-19 16:30] VITALS: BP 102/69; PULSE 61
[2024-12-19] MEDS: ACETAMINOPHEN 500MG TAB 1000 MG PO (16:32)
[2024-12-19] MEDS: IBUPROFEN 800 MG TABLET PO (16:32)
[2024-12-19 17:35] VITALS: BP 120/84; PULSE 74; RESP 15; TEMP 36.7; O2SAT 98
== END 2024-12-19 17:36 | disposition home or self-care (01) ==
PROVIDERS: Emergency Provider Student in an Organized Health Care Education/Training Program; PCP Student in an Organized Health Care Education/Training Program
DX: S63.91XA Sprain of unspecified part of right wrist and hand, initial encounter (principal); W22.8XXA Striking against or struck by other objects, initial encounter
CPT/HCPCS: 73090; 73110; 73130; 96374; 96375; 99284; J2270; J2405

== ENCOUNTER 2025-03-25 17:54 | Emergency (ER) | payer SELFPAY ==
[2025-03-25] VITALS (7 sets, daily range): BP systolic 117–134; BP diastolic 82–98; PULSE 81–102; RESP 18–20; TEMP 36.8; O2SAT 99–100; BMI 22.9
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
--- OUTSIDE RECORDS SUMMARY | 2025-03-25 18:10 | XMS_ITS | Clinical Summary ---
Author Organization Healthcare Address [address] [place] [address] Care Team Providers Care Ccie Name Role Phone Unavailable Primary Care Provider [...] Plan of Treatment Not on file [facility] [place] [id number] [employer] [facility] MEDICAID
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
[2025-03-25] MEDS: HYDROCODONE/APAP 5/325 MG TABLET 1 TAB PO (19:18)
== END 2025-03-25 20:24 | disposition home or self-care (01) ==
PROVIDERS: Emergency Provider Student in an Organized Health Care Education/Training Program
DX: M94.0 Chondrocostal junction syndrome [Tietze] (principal); M47.816 Spondylosis without myelopathy or radiculopathy, lumbar region; R07.81 Pleurodynia; M54.6 Pain in thoracic spine; F17.210 Nicotine dependence, cigarettes, uncomplicated; V49.50XA Passenger injured in collision with unspecified motor vehicles in traffic accident, initial encounter
CPT/HCPCS: 71250; 72128; 72131; 99283; 99284

== ENCOUNTER 2025-03-28 21:29 | Emergency (ER) | payer SELFPAY ==
[2025-03-28] VITALS (12 sets, daily range): BP systolic 120–143; BP diastolic 60–90; PULSE 70–91; RESP 22; TEMP 36.6; O2SAT 95–100; BMI 22.3
--- NOTE | 2025-03-28 21:45 | XR_ITS ---
PROCEDURE INFORMATION: Exam: XR Chest Exam date and time: 03/28/2025 10:13 PM Age: 34 years old Clinical indication: Other: Concern for pneumothorax, felt a popping sensation TECHNIQUE: Imaging protocol: Radiologic exam of the chest. Views: 1 view. COMPARISON: CT CHEST WO CON 03/25/2025 6:28 PM FINDINGS: Lungs: Unremarkable. No consolidation. Pleural spaces: Unremarkable. No pleural effusion. No pneumothorax. Heart/Mediastinum: Unremarkable. No cardiomegaly. Bones/joints: Unremarkable. IMPRESSION: No acute findings.
--- OUTSIDE RECORDS SUMMARY | 2025-03-28 21:47 | XMS_ITS | Clinical Summary ---
Author Organization Healthcare Address [address] [place] [address] Care Team Providers Care Outreach Liaison Name Role Phone Unavailable Primary Care Provider [...] Plan of Treatment Not on file [facility] [place] [address] [employer] [facility] MEDICA[employer]
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
[2025-03-28 22:59] LABS: Hematocrit 34.7 % (42.0-52.0); Hemoglobin 11.8 g/dL (14.1-18.0); Immature Granulocytes % 0.3 %; Mean Corpuscular HGB Conc 34.0 g/dL (31.8-35.4); Mean Corpuscular Hemoglobin 30.8 pg (27.0-31.2); Mean Corpuscular Volume 90.6 fl (80-94); Nucleated Red Blood Cells % 0 %; Platelet Count 320 K/mm3 (142-424); Red Blood Count 3.83 M/mm3 (4.60-6.20); Red Cell Distribution Width-SD 42.8 fL; White Blood Count 9.7 K/mm3 (4.8-10.8)
[2025-03-28] MEDS: LIDOCAINE 5% TRANSDERMAL PATCH 1 EACH TD (22:59)
[2025-03-28] MEDS: ACETAMINOPHEN 500MG TAB 1000 MG PO (22:59)
[2025-03-28] MEDS: METHOCARBAMOL 500MG TABLET 500 MG PO (22:59)
[2025-03-28] MEDS: KETOROLAC 30MG/ML VIAL 30 MG IM (22:59)
[2025-03-28 23:20] LABS: Alanine Aminotransferase 18 U/L (12-78); Albumin Level 3.5 g/dl (3.5-5.0); Albumin/Globulin Ratio 1.1 (1.1-1.8); Alkaline Phosphatase 73 U/L (38-126); Anion Gap 8.9 mEq/L (5-15); Aspartate Amino Transferase 34 U/L (17-59); Bilirubin,Total 0.3 mg/dl (0.2-1.3); Blood Urea Nitrogen 14 mg/dl (9-20); Calcium 9.1 mg/dl (8.4-10.2); Carbon Dioxide 30 mmol/L (22.0-30.0); Chloride 100 mmol/L (98-107); Creatinine Clearance Estimated 131 mL/min (50-200); Creatinine,Serum 0.80 mg/dl (0.66-1.25); Estimated Glomerular Filt Rate 109 ml/min (>60); GFR (African American) 132 ML/MIN (>60); Globulin 3.3 g/dL (1.3-3.2); Glucose 120 mg/dl (74-100); Potassium 3.9 mmoL/L (3.5-5.1); Sodium 135 mmol/L (136-145); Total Protein,Serum 6.8 g/dl (6.3-8.2)
[2025-03-28] MEDS: 0.9 % SODIUM CHLORIDE 50 ML VIAL 40 ML IV (23:54)
[2025-03-28] MEDS: SODIUM CHLORIDE 0.9% 10ML SYR (RAD ONLY) 10 ML IV (23:55)
[2025-03-28] MEDS: IOPAMIDOL-370 (76%);100ML BOTTLE 80 ML IV (23:55)
[2025-03-29] VITALS: BP 115/80
[2025-03-29 00:01] VITALS: PULSE 75; O2SAT 99
[2025-03-29 00:22] VITALS: BP 115/80; PULSE 72; RESP 17; TEMP 36.6; O2SAT 100
== END 2025-03-29 00:24 | disposition home or self-care (01) ==
PROVIDERS: Emergency Provider Student in an Organized Health Care Education/Training Program
DX: R07.81 Pleurodynia (principal); R06.02 Shortness of breath; M62.830 Muscle spasm of back; V49.50XA Passenger injured in collision with unspecified motor vehicles in traffic accident, initial encounter
CPT/HCPCS: 71045; 71275; 74174; 80053; 85025; 96372; 99284; 99285; J1885; Q9967